=== PATIENT | female | born 1985 | race Caucasian/White ===

== ENCOUNTER 2017-04-06 06:48 | Inpatient (IN) | payer BC ==
[~2017-04-06] VITALS: Ht 160 cm; Wt 75.0 kg
[~2017-04-06 06:48] MED LIST: ADVIL200 M1 PO; NAPROXEN500 MG PO; PRENATAL VITAM1 EACH PO
--- NOTE | 2017-05-07 13:38 | NUR ---
05/07/17 1338 Arabella Merinoa IV IN LEFT WRIST IS WNL AND INFUSING LR +20 PIT.
--- NOTE | 2017-05-08 08:29 | PR ---
[facility] [address] [facility] [place] [address] Signed PP Progress Notes Datetime Report Generated by CPN: 05/08/2017 08:29 SUBJECTIVE: [id number] Pain: Within normal limits Nausea/Vomiting: Denies Vital Signs: [id number] Vital Signs: Reviewed; Within Normal Limits Notable Details: PP Hgb/Hct = 11.7/33.3 EXAM: [id number] Abdomen/Uterus: Normal Lochia: Normal Extremities: Normal Incision: Normal IMPRESSION/PLAN/PROCEDURES: [id number] Impression: Normal progression Plan: Continue present management Procedures: None Progress Notes: Doing well, no complaints, but has not voided yet; will follow Signing Physician: Radha Gupta MD CC: *Electronically Signed* 05/08/17 0829 RADHA GUPTA MD PATIENT NAME: TAD CURRAN PROGRESS NOTE DATE OF : 85 PHYSICIAN: RADHA GUPTA MD RPT #: [id number] REPORT IS CONFIDENTIAL AND NOT TO BE RELEASED WITHOUT AUTHORIZATION
[2017-05-09] MEDS ORDERED: VITAFOL-OB+DHA1 EACH PO (06:19)
--- NOTE | 2017-05-09 10:34 | PR ---
[facility] [address] [facility] [place] [address] Signed PP Progress Notes Datetime Report Generated by CPN: 05/09/2017 10:33 SUBJECTIVE: [id number] Pain: Within normal limits Nausea/Vomiting: Denies Vital Signs: [id number] Vital Signs: Reviewed; Within Normal Limits Notable Details: PP Hgb/Hct = 11.7/33.3 EXAM: [id number] Abdomen/Uterus: Normal Lochia: Normal Extremities: Normal Incision: Normal IMPRESSION/PLAN/PROCEDURES: [id number] Impression: Normal progression Plan: Discharge Procedures: None Progress Notes: Doing well, ready to go home. Signing Physician: Radha Gupta MD CC: *Electronically Signed* 05/09/17 1033 RADHA GUPTA MD PATIENT NAME: TAD CURRAN PROGRESS NOTE DATE OF : 85 PHYSICIAN: RADHA GUPTA MD RPT #: [id number] REPORT IS CONFIDENTIAL AND NOT TO BE RELEASED WITHOUT AUTHORIZATION
--- NOTE | 2017-05-09 10:43 | OR ---
[facility] [address] [place] [id number] Signed DATE OF OPERATION: 05/07/2017 SURGEON: Jaden Guaman MD The patient of Dr. Guaman. PREOPERATIVE DIAGNOSIS: Term , previous section. POSTOPERATIVE DIAGNOSIS: Term , previous section. PROCEDURE: Repeat low-transverse segment section, delivery of live male . GASOLINE CATALYST OPERATOR: Dr. Spence. ANESTHESIA: Spinal. ESTIMATED BLOOD LOSS: 600 mL. COMPLICATIONS: None. DRAINS: Villatoro to bladder. FINDINGS: Live male infant, Apgars 8 and 9, weight 6 pounds 14 ounces. Normal uterus, normal tubes, and ovaries bilateral. DESCRIPTION OF PROCEDURE: The patient was brought into the operating room and placed in supine position. After adequate spinal anesthesia was obtained, was prepped and draped in usual sterile fashion. Villatoro catheter was placed into the bladder. A small infraumbilical skin incision was made with a scalpel. Subcutaneous tissue was Electronically Signed By: JADEN GUAMAN MD 05/09/17 1043 PATIENT NAME: TAD CURRAN OPERATIVE REPORT DATE OF : 85 PHYSICIAN: JADEN GUAMAN MD REPORT #: [id number] REPORT IS CONFIDENTIAL AND NOT TO BE RELEASED WITHOUT AUTHORIZATION [facility] [address] [place] [id number] Signed dissected with Bovie, and scalpel. The fascia was nicked with scalpel, and extended in transverse fashion using curved scissors. The underlying abdominal musculature was bluntly, and sharply from the fascia above, and below the incision. The abdominal musculature was bluntly, and sharply along the midline. The peritoneum was grasped with hemostats, elevated, and nicked with Metzenbaum scissors, and extended in a vertical fashion. Using scissors, the Julián self-retaining retractor was inserted into the incision, and tightened in place. Lower uterine segment was identified. The bladder was noted to be well below the area of dissection, so a small mihai was made in mid portion of the lower uterine segment. Incision was extended in transverse fashion using finger dissection, and clear fluid came from the incision. The was noted to be in vertex, or OT presentation. The infant's head was delivered from the incision. The cord was noted to be around the neck. Once this was removed, the rest of the was then easily delivered from the incision. Mouth and nose were suctioned with bulb syringe. While the cord was doubly clamped and cut the was passed off the table in good condition to awaiting nurse. Placenta was manually removed, and uterine cavity was explored with lap pad to remove any retaining membranes. An angled stitch of 0 Monocryl was placed at one end of the incision. A running locking stitch of 0 Monocryl starting at the other end used to close the incision. Second running locking stitch of 0 Monocryl was used to imbricate the first layer. There was 2 small areas of bleeding along the bottom edge of the incision just at midline, and just to the right of midline, and these were closed with simple stitches of 0 Monocryl. The entire pelvis was then irrigated, suctioned, and examined. Any superficial bleeding spots were cauterized with a Bovie. When good hemostasis was obtained, the Julián retractor was removed, and a sheath of ACell was placed over the lower uterine segment to help with healing. The anterior wall peritoneum was closed using running stitch of 2-0 Vicryl suture. The abdominal musculature was reapproximated using interrupted stitches of 0 Vicryl suture. The abdominal wall incision was irrigated, suctioned, and examined, and any bleeding spots were cauterized with a Bovie. Powdered ACell was sprinkled on the abdominal musculature and the fascia was closed using 2 running stitch of 0 Vicryl suture meeting in the midline. Subcutaneous tissue was irrigated, suctioned, examined, any bleeding spots were cauterized with a Bovie. The remaining powdered ACell was sprinkled on the subcutaneous tissue, which was closed using interrupted stitches of 3-0 Vicryl suture. Skin was reapproximated using skin clips. The patient tolerated the procedure well and went to recovery room in good condition. Sponge, needle, and instrument counts were correct at the end of procedure. Electronically Signed By: JADEN GUAMAN MD 05/09/17 1043 PATIENT NAME: TAD CURRAN OPERATIVE REPORT DATE OF : 85 PHYSICIAN: JADEN GUAMAN MD REPORT #: [id number] REPORT IS CONFIDENTIAL AND NOT TO BE RELEASED WITHOUT AUTHORIZATION [address] [address] Signed MD MENDOZA Campa/MODL /[id number] Electronically Signed By: JADEN GUAMAN MD 05/09/17 1043 PATIENT NAME: TAD CURRAN OPERATIVE REPORT DATE OF : 85 PHYSICIAN: JADEN GUAMAN MD REPORT #: [id number] REPORT IS CONFIDENTIAL AND NOT TO BE RELEASED WITHOUT AUTHORIZATION
== END 2017-05-09 12:25 | disposition home or self-care (01) | DRG 775 ==
LOC: FBC 05-07 05:43
PROVIDERS: ADMIT General Practice
PROC: 10E0XZZ Delivery of Products of Conception, External Approach (ICD-10-PCS; principal; 2017-05-07 06:45)
DX: O34.211 Maternal care for low transverse scar from previous cesarean delivery (principal); Z3A.39 39 weeks gestation of pregnancy; Z37.0 Single live birth; O99.334 Smoking (tobacco) complicating childbirth; F17.210 Nicotine dependence, cigarettes, uncomplicated
CPT/HCPCS: 01961; 36415; 85027; 94760; C1763; J0690; J1100; J2274; J2300; J2370; J2405; J2590; J3010; J7120

== ENCOUNTER 2019-05-26 16:13 | Emergency (ER) | payer OTHER, BC ==
[~2019-05-26] VITALS: Ht 160 cm; Wt 75.3 kg
[~2019-05-26 16:13] MED LIST changes: +VITAFOL-OB+DHA1 EACH PO
== END 2019-05-26 18:39 | disposition home or self-care (01) ==
LOC: ED 16:13
DX: S46.912A Strain of unspecified muscle, fascia and tendon at shoulder and upper arm level, left arm, initial encounter (principal); X50.0XXA Overexertion from strenuous movement or load, initial encounter; F17.200 Nicotine dependence, unspecified, uncomplicated
CPT/HCPCS: 96372; 99283-25; 99406; J1885

== ENCOUNTER 2020-10-08 11:33 | Emergency (ER) | payer OTHER, BC ==
[~2020-10-08] VITALS: Ht 162.6 cm; Wt 74.8 kg
== END 2020-10-08 13:30 | disposition home or self-care (01) ==
LOC: ED 11:33
DX: S46.912A Strain of unspecified muscle, fascia and tendon at shoulder and upper arm level, left arm, initial encounter (principal); X50.0XXA Overexertion from strenuous movement or load, initial encounter; J45.909 Unspecified asthma, uncomplicated; F17.200 Nicotine dependence, unspecified, uncomplicated
CPT/HCPCS: 99283

== ENCOUNTER 2022-10-18 17:04 | Inpatient (IN) | payer BC ==
--- NOTE | 2022-10-18 18:14 | NUR ---
RT COLLECTED RAPID COVID 19 SWAB AT THIS TIME WITH NO COMPLICATIONS.
--- NOTE | 2022-10-18 20:38 | NUR ---
10/18/222037 Ольга Kay 2030: PT ARRIVES TO [facility] ROOM 104. SHE IS SLEEPY, AROUSES TO STIMULI AND RESPONDS APPROPRIATELY. DAD AND BABY IN THE ROOM.
[2022-10-18 20:41] VITALS: BP 100/62
--- NOTE | 2022-10-19 13:07 | OR ---
[facility] [address] [facility] [place], [place] [address] Signed DATE OF OPERATION: 10/18/2022 SURGEON: Jaden Guaman MD The patient of Dr. Guaman. PREOPERATIVE DIAGNOSIS: premature rupture of membranes and previous section x2. POSTOPERATIVE DIAGNOSIS: premature rupture of membranes and previous section x2. PROCEDURE: Repeat low transverse segment section, delivery of live male . SENIOR FRONT END ENGINEER: Dr. Hinojosa. ANESTHESIA: Spinal. ESTIMATED BLOOD LOSS: 500 mL. COMPLICATIONS: None. DRAINS: Villatoro to bladder. FINDINGS: Live male infant, Apgars 8 and 9, weight 5 pounds 11 ounces. Normal uterus, normal tubes and ovaries bilateral. DESCRIPTION OF PROCEDURE: The patient was brought into the operating room, placed in supine position. After adequate spinal anesthesia was obtained, was prepped and draped in usual sterile fashion. Villatoro catheter was placed in the bladder. A Pfannenstiel skin incision was made through previous surgical scar using a scalpel and the subcutaneous tissue dissected with scalpel and Bovie. The fascia was nicked with scalpel and extended in Electronically Signed By: JADEN GUAMAN MD 10/19/22 1307 PATIENT NAME: TAD CURRAN OPERATIVE REPORT DATE OF : 85 REPORT #: [id number] PHYSICIAN: JADEN GUAMAN MD PCP: NO PRIMARY CARE PHYSICIAN REPORT IS CONFIDENTIAL AND NOT TO BE RELEASED WITHOUT AUTHORIZATION [facility] [address] [place], [place] [address] Signed transverse fashion using curved scissors. The underlying abdominal musculature was bluntly and sharply from the fascia above and below the incision. The abdominal musculature was bluntly and sharply along the midline. The peritoneum was grasped with hemostats, elevated, nicked with scissors, and extended in vertical fashion using curved scissors. The Julián self-retaining retractor was inserted into the incision and tightened in place. The lower uterine segment was identified. There was a slight elevation in the bladder flap, so small incision was made in the lower uterine segment above this and the incision extended in transverse fashion using finger dissection. Clear fluid came from the incision. The was noted to be in a vertex LOT presentation. The infant's head was easily delivered from the incision. The rest of the infant was easily delivered from the incision and cord doubly clamped and cut. The was passed off table in good condition to awaiting nurse. The placenta was manually removed and uterine cavity explored with lap pad to remove any retained membranes. An angle stitch of 0 Monocryl was placed at one end of the incision and running locking stitch of 0 Monocryl starting at the other end, used to close the incision at the left angle. The incision was slightly ragged and irregular and did not pull together well, so the stitches on the left angle were carefully pulled together. A 2nd running locking stitch of 0 Monocryl was used to imbricate the 1st layer. There was still some bleeding on the left side, but medial to the angle, and this was controlled with several [id number]-aw-[id number] stitches of 0 Monocryl. Care was taken to make sure to stay out of the broad ligament by putting finger behind the broad ligament and making sure any stitches were within the myometrium. Good hemostasis was then found. The pelvis was irrigated, suctioned, and examined, and any superficial bleeding spots cauterized with the Bovie. The Julián self-retaining retractor was removed in the lower uterine segment, especially the left angle, sprayed with Tisseel to help with bleeding, since this was raw appearing area, but good hemostasis was noted. The anterior wall peritoneum was then closed using running stitch of 2-0 Vicryl suture. The abdominal musculature was reapproximated using interrupted stitches of 0 Vicryl suture. The abdominal wall incision was irrigated, suctioned, examined, and any bleeding spots cauterized with the Bovie. The remaining Tisseel was sprayed on the abdominal musculature to help with any bleeding. The fascia was then closed using 2 running stitch of 0 Vicryl suture meeting in the midline. The subcutaneous tissue was irrigated, suctioned, and examined, and any bleeding spots cauterized using the Bovie. Subcutaneous tissue was then closed using interrupted stitches of 3-0 Vicryl suture. The skin was reapproximated using skin clips. The patient tolerated the procedure well, went to recovery room in good condition. The sponge, needle, and instrument count were correct at the end of procedure. Jaden Guaman MD Electronically Signed By: JADEN GUAMAN MD 10/19/22 1307 PATIENT NAME: TAD CURRAN OPERATIVE REPORT DATE OF : 85 REPORT #: [id number] PHYSICIAN: JADEN GUAMAN MD PCP: NO PRIMARY CARE PHYSICIAN REPORT IS CONFIDENTIAL AND NOT TO BE RELEASED WITHOUT AUTHORIZATION [address] [address] Signed B/[facility] /[id number] Copies: ~ Electronically Signed By: JADEN GUAMAN MD 10/19/22 1307 PATIENT NAME: TAD CURRAN CORDELL OPERATIVE REPORT DATE OF : 85 REPORT #: [id number] PHYSICIAN: JADEN GUAMAN MD PCP: NO PRIMARY CARE PHYSICIAN REPORT IS CONFIDENTIAL AND NOT TO BE RELEASED WITHOUT AUTHORIZATION
--- NOTE | 2022-10-19 13:11 | PR ---
[facility] [address] [place], [place] [address] Signed PP Progress Notes Datetime Report Generated by CPN: 10/19/2022 13:11 SUBJECTIVE: [id number] Pain: Within Normal Limits Nausea/Vomiting: Denies Vital Signs: [id number] Vital Signs: Reviewed; Within Normal Limits Notable Details: PP Hgb/Hct = 11.1/33.5 EXAM: Ongoing Abdomen/Uterus: Normal Lochia: Normal Incision: Normal IMPRESSION/PLAN/PROCEDURES: [id number] Impression: Normal Progression Plan: Continue Present Management Procedures: None Progress Notes: Doing well, tolerating food well, still with Villatoro Cath in bladder. Increase activity and diet as tolerated. Will have Villatoro removed later today. Hopefully home tomorrow. Signing Physician: Radha Guaman MD Copies: ~ *Electronically Signed* 10/19/22 1311 RADHA GUAMAN MD PATIENT NAME: TAD CURRAN PROGRESS NOTE DATE OF : 85 PHYSICIAN: RADHA GUAMAN MD RPT #: [id number] REPORT IS CONFIDENTIAL AND NOT TO BE RELEASED WITHOUT AUTHORIZATION
--- NOTE | 2022-10-20 07:50 | PR ---
[facility] [address] [place], [place] [address] Signed PP Progress Notes Datetime Report Generated by CPN: 10/20/2022 07:50 SUBJECTIVE: [id number] Pain: Within Normal Limits Nausea/Vomiting: Denies Flatus: Yes Bowel Movement: No Vital Signs: [id number] Vital Signs: Reviewed; Within Normal Limits Notable Details: PP Hgb/Hct = 11.1/33.5 EXAM: Ongoing Cardiovascular: Normal Respiratory: Normal Abdomen/Uterus: Normal Lochia: Normal Vulva/Perineum: Not Done Breasts: Not Done CVA Tenderness: Normal Extremities: Normal Incision: Normal Progress: Normal Exam Comments: Fundus firm U-2 nontender, incision well healed IMPRESSION/PLAN/PROCEDURES: [id number] Impression: Normal Progression Plan: Remove Yazmin; Discharge Procedures: None Progress Notes: Pt seen and examined. Doing well. Ambulating, voiding, and tolerating full diet. No fevers/chills/other concerns. well. Desires d/c home today. [place] to be removed prior to d/c. Recommend abdominal binder. Reviewed d/c instructions and medications. F/U Dr. Guaman 2 wks. Signing Physician: Lisa Hinojosa DO Copies: ~ *Electronically Signed* 10/20/22 0750 LISA HINOJOSA (DANA) DO PATIENT NAME: TAD CURRAN PROGRESS NOTE DATE OF : 85 PHYSICIAN: LISA HINOJOSA (JD) DO RPT #: [id number] REPORT IS CONFIDENTIAL AND NOT TO BE RELEASED WITHOUT AUTHORIZATION
== END 2022-10-20 11:20 | disposition home or self-care (01) | DRG 788 ==
LOC: FBCO 17:04 → FBC 17:05
PROVIDERS: ADMIT General Practice; ATTEND General Practice
PROC: 10D00Z1 Extraction of Products of Conception, Low, Open Approach (ICD-10-PCS; principal; 2022-10-19)
DX: O42.113 Preterm premature rupture of membranes, onset of labor more than 24 hours following rupture, third trimester (principal); O34.211 Maternal care for low transverse scar from previous cesarean delivery; Z3A.36 36 weeks gestation of pregnancy; Z37.0 Single live birth; O99.344 Other mental disorders complicating childbirth; F17.210 Nicotine dependence, cigarettes, uncomplicated; Z67.40 Type O blood, Rh positive
CPT/HCPCS: 01961; 36415; 64488; 76942; 85027; 86850; 86900; 86901; A9270; C9803; J0330; J0456; J0690; J1885; J2001; J2274; J2300; J2405; J2590; J2704; J2765; J2795; U0003

== ENCOUNTER 2023-07-25 08:33 | Emergency (ER) | payer OTHER, BC ==
[~2023-07-25] VITALS: Ht 162.6 cm; Wt 89.0 kg
[2023-07-25] MEDS ORDERED: NAPROSYN500 MG PO (09:28)
[2023-07-25 09:49] VITALS: BP 129/73
== END 2023-07-25 09:51 | disposition home or self-care (01) ==
LOC: ED 08:33
DX: S43.402A Unspecified sprain of left shoulder joint, initial encounter (principal); F17.200 Nicotine dependence, unspecified, uncomplicated; W00.0XXA Fall on same level due to ice and snow, initial encounter
CPT/HCPCS: 73030; 96372; 99283-25; A9270; J1885